=== PATIENT | female | born 1940 | race African-American/Black ===

== ENCOUNTER 2017-01-06 17:20 | Inpatient (IN) | payer OTHER ==
[~2017-01-06] VITALS: Ht 154.9 cm; Wt 79.4 kg
--- NOTE | ~2017-01-06 | 2DMMODE ---
[facility] [address] [place] [address] 2 D/M-MODE ECHOCARDIOGRAM Name: CIRILO HAWK ANDREW Room #: 206-P ADM IN .R.#: [id number] Admission: 01/06/17 Attend Phys: Douglas Hackett MD Discharge: Date of : 44 Date of Service: 01/07/17 1115 Report #: [id number] THIS REPORT FOR: //name// APPROVED REPORT Study performed: 01/07/2017 09:27:44 EXAM: Comprehensive 2D, Doppler, and color-flow Echocardiogram Patient Location: Bedside Room #: 206 Status: routine Other Information Study Quality: Good Indications Chest Pain Hx HTN, HLP 2D Dimensions RVDd: 33.49 mm LVEF(%): 74.27 (>50%) IVSd: 11.17 (7-11mm) LVOT Diam: 19.60 (18-24mm) LVDd: 41.88 mm PWd: 9.42 (7-11mm) Ascending Ao: 36.27 (22-36mm) LVDs: 23.97 (25-40mm) Aortic Root: 29.47 mm IVC: 1.80 mm Nick's LVEF: 74.27 % Volumes Left Atrial Volume (Systole) Single Plane 4CH: 32.76 mL Aortic Valve AoV Peak Jose.: 1.60 m/s AO Peak Gr.: 10.27 mmHg LVOT Max P.78 mmHg LVOT Max V: 1.09 m/s MARY Vmax: 2.06 cm2 Mitral Valve E/A Ratio: 0.8 MV Decel. Time: 236.42 ms MV E Max Jose.: 0.89 m/s MV A Jose.: 1.05 m/s MV PHT: 68.56 ms IVRT: 69.20 ms [facility] [place] [address] 2 D/M-MODE ECHOCARDIOGRAM Name: HAWKCIRILO [place] Room #: 206-P [facility] IN M.R.#: [id number] Admission: 01/06/17 Attend Phys: Douglas Hackett MD Discharge: Date of : 44 Date of Service: 01/07/17 1115 Report #: [id number] Pulmonary Valve PV Peak Jose.: 0.92 m/s PV Peak Gr.: 3.40 mmHg Pulmonary Vein P Vein S: 0.45 m/s P Vein A: 0.31 m/s P Vein D: 0.32 m/s P Vein A Dur.: 120.0 msec P Vein S/D Ratio: 1.41 Tricuspid Valve TR Peak Jose.: 2.50 m/s RAP Estimate: 5.00 mmHg TR Peak Gr.: 25.03 mmHg PA Pressure: 30.00 mmHg Left Ventricle The left ventricle is normal size. There is normal LV segmental wall motion. There is normal left ventricular wall thickness. The left ventricular systolic function is normal. The left ventricular ejection fraction is within the normal range. LVEF is 60%. Grade I - abnormal relaxation pattern. Right Ventricle The right ventricle is normal size. The right ventricular systolic function is normal. Atria The left atrium size is normal. The right atrium size is normal. Aortic Valve Aortic valve is calcified. No aortic regurgitation is present. There is no aortic valvular stenosis. Mitral Valve Mitral valve leaflets are thickened. There is no mitral valve regurgitation noted. No evidence of mitral valve stenosis. Tricuspid Valve The tricuspid valve is normal in structure. There is trace tricuspid regurgitation. The right atrial pressure is estimated at 5 mmHg. There is mild pulmonary hypertension with an estimated PAP 30 mmHg. Pulmonic Valve The pulmonary valve is normal in structure. There is no pulmonic valvular regurgitation. [facility] [address] [place] [address] 2 D/M-MODE ECHOCARDIOGRAM Name: CIRILO HAWK Room #: 206-P ADM IN .R.#: [id number] Admission: 01/06/17 Attend Phys: Douglas Hackett MD Discharge: Date of : 44 Date of Service: 01/07/17 1115 Report #: [id number] Great Vessels The aortic root is normal in size. IVC is normal in size and collapses >50% with inspiration. Pericardium There is no pericardial effusion. <Conclusion> The left ventricle is normal size. LVEF is 60%. The left atrium size is normal. Aortic valve is calcified. No aortic regurgitation is present. There is no aortic valvular stenosis. Mitral valve leaflets are thickened. There is no mitral valve regurgitation noted. The tricuspid valve is normal in structure. There is trace tricuspid regurgitation. The right atrial pressure is estimated at 5 mmHg. There is mild pulmonary hypertension with an estimated PAP 30 mmHg. <ELECTRONICALLY SIGNED> By: Flako Perez MD 01/07/17 1115 1115 1115 Flako Perez MD /INF
--- NOTE | ~2017-01-06 | EKG ---
[address] [place] [address] ELECTROCARDIOGRAM REPORT Name: CIRILO HAWK Room #: 206-P ADM IN M.R.#: [id number] Admission: 01/06/17 Attend Phys: Douglas Hackett MD Discharge: Date of : 44 Report #: [id number] THIS REPORT FOR: //name// [facility] ED Test Date: 2017-01-06 Test Time: 17:31:06 Pat Name: CIRILO HAWK Department: Room: 206 Gender: F Med Admin: KEITH : 1940 Requested By: Fauzia Fernandes Order Number: [id number] MD: Dixon Morris Measurements Intervals [place] Rate: 96 P: 47 WY: 154 QRS: -20 QRSD: 76 T: 46 QT: 328 QTc: 415 Interpretive Statements Sinus rhythm Borderline left axis deviation Low voltage, precordial leads ST elevation suggests acute pericarditis Compared to ECG 12/12/2014 08:57:25 ST (T wave) deviation now present Electronically Signed On 01-07-2017 8:54:43 CDT by Dixon Morris [email or web address] <ELECTRONICALLY SIGNED> By: Dixon Morris MD, [facility] 01/07/17 0854 1731 1731 Dixon Morris MD, [facility] /EPI
--- NOTE | ~2017-01-06 | EKG ---
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: 1940 Requested By: Dixon Morris Order Number: [id number] MD: Dixon Morris Measurements Intervals [place] Rate: 89 P: 55 OR: 167 QRS: -17 QRSD: 77 T: 34 QT: 360 QTc: 439 Interpretive Statements Sinus rhythm Borderline left axis deviation Low voltage, precordial leads Borderline T wave abnormalities Compared to ECG 01/06/2017 17:31:06 Minimal, diffuse ST elevation is no longer present Electronically Signed On 01-08-2017 18:26:18 CDT by Dixon Morris [email or web address] <ELECTRONICALLY SIGNED> By: Dixon Morris MD, [facility] 01/08/17 1826 0619 Dixon Morris MD, [facility] /EPI
--- NOTE | ~2017-01-06 | HC ---
[facility] [place] [address] CONSULTATION Name: CIRILO HAWK Room #: 206-P [facility] IN M.R.#: [id number] Admission: 01/06/17 Attend Phys: Douglas Hackett MD Discharge: Date of : 44 Report #: [id number] THIS REPORT FOR: //name// CC: Deisi Hackett REASON FOR CONSULTATION: Chest pain. HISTORY OF PRESENT ILLNESS: The patient is a 76-year-old woman with rheumatoid arthritis. She presents with 2- to 3-day history of sharp epigastric and left-sided chest pain, occasionally radiating to her shoulder. The pain would come and go; in general it lasts in 15-minute increments. There was a positional component to the pain and she had trouble lying on her left side as the pain was clearly worse. She took a Zantac with may be some improvement, although the pain recurred. She denies fevers, chills, night sweats, rash or any specific joint flares for her rheumatoid arthritis. Presenting EKG demonstrated minimal diffuse ST elevation and AZ depression and multiple leads with subtle AZ elevation in aVR. She denies heart failure symptoms including orthopnea, paroxysmal nocturnal dyspnea or lower extremity edema. No history of near syncope or syncope. MEDICATIONS: Include iron, amlodipine 5 mg daily, Estrace, Plaquenil 200 mg twice daily, prednisone 2 mg twice daily and atorvastatin 40 mg daily. ALLERGIES: She is allergic to CODEINE AND SULFA. PAST MEDICAL HISTORY: Medical records have been reviewed and include a history of rheumatoid arthritis, cholecystectomy, total abdominal hysterectomy, bilateral knee replacements, restless legs syndrome, hypertension and dyslipidemia. SOCIAL HISTORY: She is . 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 FAMILY HISTORY: Notable for father who at 51 of myocardial infarction. REVIEW OF SYSTEMS: All systems negative except as that noted above. PHYSICAL EXAMINATION: GENERAL: A pleasant woman in no distress. VITAL SIGNS: Blood pressure is 98/60, heart rate of 90 and regular. She is afebrile, 5 feet 1 inches tall and 175 pounds. HEENT: There are neither xanthelasma, subcutaneous xanthomata, oral mucosal or digital cyanosis or kyphoscoliosis present. CHEST: Clear to auscultation and percussion. CARDIOVASCULAR: Regular rate and rhythm with normal S1, S2. I do not hear a rub. ABDOMEN: Soft and nontender. [facility] [address] [place] [address] CONSULTATION Name: CIRILO HAWK Room #: 206-P [facility] IN ..#: [id number] Admission: 01/06/17 Attend Phys: Douglas Hackett MD Discharge: Date of : 44 Report #: [id number] EXTREMITIES: Without cyanosis, clubbing or edema. Radial pulses are 2+. NEUROLOGIC: She is alert with a nonfocal exam. LABORATORY DATA: Sodium is 139, potassium 4.2, creatinine 1.8, which is around her baseline. Troponin is 0.17 and 0.18, CRP of 176. White count 10.9, hemoglobin 14, hematocrit 42, platelet count 187 and sed rate of 29. Chest x-ray demonstrates a small left pleural effusion, mid left lower lobe infiltrate or atelectasis. IMPRESSION: 1. Probable myocarditis/pericarditis. 2. Rheumatoid arthritis. 3. Hypertension. 4. Chronic kidney disease. 5. Dyslipidemia. RECOMMENDATIONS: 1. A trial of anti-inflammatory medications, tapering dose; 3-month course of colchicine. 2. Echocardiogram with Doppler. 3. Rheumatologic evaluation, I suspect this episode is likely related to her underlying inflammatory arthritis. Further thoughts will be forthcoming based on this evaluation. Thank you for asking me to participate in her care. By: 0734 0908 Dixon Morris MD, FACC /nt
--- NOTE | ~2017-01-06 | EKG ---
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 : 1940 Requested By: Zandra Johnson Order Number: [id number] MD: Dixon Morris Measurements Intervals [place] Rate: 82 P: 51 MS: 166 QRS: -14 QRSD: 75 T: 42 QT: 374 QTc: 437 Interpretive Statements Sinus rhythm Low voltage, precordial leads ST elevation, consider pericarditis Compared to ECG 12/12/2014 08:57:25 No significant change was found Electronically Signed On 01-08-2017 18:12:09 CDT by Dixon Morris [email or web address] <ELECTRONICALLY SIGNED> By: Dixon Morris MD, [facility] 01/08/17 1812 0540 0540 Dixon Morris MD, [facility] /EPI
[~2017-01-06 17:20] MED LIST: ALDACTONE25 MG PO; ATORVASTATIN CA40 MG PO; CALCIUM 600 +1 EAC1 PO; COLACE100 MG PO; CYTOTEC200 MCG PO; DICLOFENAC SODI75 M1 PO; DYAZIDE 37.5-21 EACH PO; ESTRACE1 MG PO; FISH OIL 1,0001 EAC5 PO; FISH OIL 1,001000 M2 PO; GLUCOSAMINE &1 EAC1 PO; HCTZ; HYDROCODONE-AP1 EAC6 PO; HYDROXYCHLOROQ200 M1 PO; IBUPROFEN 600600 M1 PO; IRON325 PO; MIRALAX17 GM PO; NEXIUM40 MG PO; NORCO 5-325 TA1 EACH PO; NORFLEX100 MG PO; NORVASC 5 MG TAB5 MG PO; PENNSAID150 ML TRANSDERM; PREDNISOLONE 5 M5 M1 PO; PREDNISONE 1 MG1 M1 PO; RED YEAST RICE600 MG PO; REQUIP0.5 MG PO; TRAMADOL 50 MG50 MG PO; TYLENOL325 MG PO; XARELTO10 MG PO; ZANAFLEX4 MG PO
[2017-01-06 17:31] VITALS: BP 92/56
[2017-01-06 18:14] LABS: HEMATOCRIT 42.2 % (37.0-47.0); HEMOGLOBIN 14.2 gm/dL (12.0-15.0); MCH 30.9 pg (26.0-34.0); MCHC 33.6 g/dL (28.0-37.0); MCV 92.1 fL (80.0-100.0); PLATELET COUNT 187 thou/uL (150-400); RBC 4.58 mil/uL (4.20-5.00); WBC 10.9 thou/uL (4.0-11.0)
[2017-01-06 18:17] LABS: MANUAL DIFF YES
[2017-01-06 18:28] LABS: INR 1.7; PROTIME 17.7 Seconds (9.3-11.4)
[2017-01-06 18:29] LABS: ANION GAP 12 mmol/L (7-16); BUN 29 mg/dL (7-18); CHLORIDE 101 mmol/L (98-107); CO2 24 mmol/L (21-32); CREATININE 2.1 mg/dL (0.6-1.0); GLUCOSE 92 mg/dL (74-106); POTASSIUM 4.2 mmol/L (3.5-5.1); SODIUM 137 mmol/L (136-145)
[2017-01-06 18:39] LABS: ABSOLUTE NEUTROPHILS 8.3 thou/uL (1.4-8.2); TOTAL CELL COUNT 100
[2017-01-06 18:40] LABS: ALBUMIN 3.5 g/dL (3.4-5.0); ALKALINE PHOSPHATASE 65 U/L (46-116); SGOT 24 U/L (15-37); SGPT 18 U/L (30-65); TOTAL BILIRUBIN 0.6 mg/dL (<0.1-1.0); TROPONIN-I < 0.04 ng/mL (<0.04-0.07)
[2017-01-06 19:47] VITALS: BP 84/52
[2017-01-06 20:20] VITALS: BP 91/56
[2017-01-06] MEDS ORDERED: PREDNISONE 5 MG5 M1 PO (20:25)
[2017-01-06 23:57] LABS: CHOLESTEROL 128 mg/dL (<200); HDL CHOLESTEROL 75 mg/dL (>40); LDL CHOLESTEROL 43 mg/dL (<100); TC:HDL 1.7 Ratio (Not establshd); TRIGLYCERIDE 50 mg/dL (<150); TROPONIN-I 0.17 ng/mL (<0.04-0.07); VLDL 10 mg/dL (<40)
[2017-01-07 00:24] VITALS: BP 90/59
[2017-01-07 04:17] VITALS: BP 98/60
[2017-01-07 06:09] LABS: CALCIUM 7.8 mg/dL (8.5-10.1); CREATININE 1.8 mg/dL (0.6-1.0); POTASSIUM 4.2 mmol/L (3.5-5.1); TROPONIN-I 0.18 ng/mL (<0.04-0.07)
[2017-01-07 07:30] VITALS: BP 94/59
[2017-01-07 11:28] VITALS: BP 96/61
[2017-01-07 16:23] VITALS: BP 99/53
[2017-01-07 20:15] VITALS: BP 97/60
[2017-01-08 03:02] LABS: HEMATOCRIT 35.9 % (37.0-47.0); MCH 30.5 pg (26.0-34.0); MCHC 33.7 g/dL (28.0-37.0); MCV 90.7 fL (80.0-100.0); RBC 3.96 mil/uL (4.20-5.00); WBC 8.2 thou/uL (4.0-11.0)
[2017-01-08 03:13] LABS: HEMOGLOBIN 12.1 gm/dL (12.0-15.0)
[2017-01-08 03:20] LABS: CALCIUM 7.7 mg/dL (8.5-10.1); CREATININE 1.5 mg/dL (0.6-1.0); POTASSIUM 3.9 mmol/L (3.5-5.1)
[2017-01-08 03:52] VITALS: BP 94/53
[2017-01-08 05:11] LABS: GLYCOHEMOGLOBIN (HGB A1C) 5.3 % (4.8-5.6)
[2017-01-08 09:47] VITALS: BP 94/53
[2017-01-08 10:24] VITALS: BP 94/53
[2017-01-08] MEDS ORDERED: ASPIRIN325 PO (11:45)
[2017-01-08] MEDS ORDERED: PROTONIX40 M1 PO (11:46)
[2017-01-08] MEDS ORDERED: COLCHICINE0.6 MG PO (11:46)
== END 2017-01-08 12:30 | disposition home or self-care (01) | DRG 314 ==
LOC: ER 17:20 → 2N 19:07 → EROBS 19:07 → 2N 19:48
PROVIDERS: Hospitalist; Internal Medicine; Nurse Practitioner Acute Care; Physician Assistant
DX: I30.9 Acute pericarditis, unspecified (principal); I40.9 Acute myocarditis, unspecified; N17.9 Acute kidney failure, unspecified; I12.9 Hypertensive chronic kidney disease with stage 1 through stage 4 chronic kidney disease, or unspecified chronic kidney disease; E78.00 Pure hypercholesterolemia, unspecified; M06.9 Rheumatoid arthritis, unspecified; K21.9 Gastro-esophageal reflux disease without esophagitis; G25.81 Restless legs syndrome; E78.5 Hyperlipidemia, unspecified; N18.3 Chronic kidney disease, stage 3 (moderate); Z96.653 Presence of artificial knee joint, bilateral; Z79.899 Other long term (current) drug therapy; Z90.710 Acquired absence of both cervix and uterus; Z90.49 Acquired absence of other specified parts of digestive tract; Z82.49 Family history of ischemic heart disease and other diseases of the circulatory system; Z88.6 Allergy status to analgesic agent; Z88.2 Allergy status to sulfonamides; Z79.52 Long term (current) use of systemic steroids
CPT/HCPCS: 10081

== ENCOUNTER → 2017-02-12 | Outpatient (CLI) | payer OTHER ==
[~2017-02-12] VITALS: Ht 157.5 cm; Wt 77.1 kg
[~2017-02-12] MED LIST changes: +ASPIRIN325 PO; +COLCHICINE0.6 MG PO; +FLUTICASONE PRO16 GM NASAL; +PREDNISONE 5 MG5 M1 PO; +PROTONIX40 M1 PO
--- NOTE | ~2017-02-12 | S ---
[facility] [place] [address] SURGICAL PATH RPT PROCEDURE Name: HAWKGERBER Room #: REG CLI Vaughn.#: [id number] Admission: 02/12/17 Date of : 44 Discharge: Report #: [id number] Path Case #: [id number] PATHOLOGY REPORT COLLECTION DATE: 02/12/2017 RECEIVED DATE: 02/12/2017 SUBMITTING PHYS: Dr. Rj Hoyos OTHER PHYS: Dr Deisi Nichole SPECIMEN(S) RECEIVED: A.Gastric bx * * * * * * * * * * * * FINAL DIAGNOSIS: Gastric mucosa, rule out gastritis, endoscopic biopsy: - Moderate reactive gastropathy. - Negative for intestinal metaplasia or atrophy. - Negative for Helicobacter pylori. COMMENT: Helicobacter pylori immunohistochemical stain performed on block A1-negative (IUV:mgr; 02/13/2017) PATHOLOGIST: Alaina Bowser M.D. REPORT ELECTRONICALLY SIGNED BY: Alaina Bowser M.D. DATE/TIME: 02/13/2017 12:35 * * * * * * * * * * * * GROSS PATHOLOGY: Received in formalin labeled "Gerber Hawk gastric BX," and additionally labeled on the requisition as "r/o gastritis," are 3 segments of lopez soft tissue measuring 0.8 x 0.2 x 0.3 cm in aggregate dimensions and ranging from 0.2 to 0.3 cm in maximum dimension. The specimen is submitted entirely in cassette A1. (TSD; 02/12/2017) CLINICAL HISTORY: Pre-OP DX: Abdominal pain Post-OP DX: Dysphagia, gastritis INITIAL CPT CODE(S): A; 00176, 65638 Professional services performed by [email or web address] at [facility] [address] [place] [address] SURGICAL PATH RPT PROCEDURE Name: GEREBR HAWK Room #: REG ANAT Ji#: [id number] Admission: 02/12/17 Date of : 44 Discharge: Report #: [id number] Path Case #: [id number] [address] [facility] , [place] [address] Technical services performed by [email or web address] at [address] [place] [address], [facility] [address] [address]. [facility] [address] [place] [address] PHONE: [phone] DIRECTOR: Jaquan Martinez M.D. * * * END OF REPORT * * *
--- NOTE | ~2017-02-12 | P ---
[facility] [place] [address] PROCEDURE REPORT Name: CIRILO HAWK [id number] Admission: 02/12/17 Attend Phys: Rj Jaffe Discharge: Date of : 44 Report #: [id number] THIS REPORT FOR: //name// CC: Rj Nichole MD DATE OF SERVICE: 02/12/2017 PROCEDURE PERFORMED: Upper endoscopy with biopsies and esophageal dilation. HISTORY OF PRESENT ILLNESS: The patient is a 76-year-old female with intermittent chest pain, mid epigastric abdominal pain and dysphagia. Plan is for upper endoscopy. PROCEDURE: The risks and benefits of the procedure were explained to the patient, those risks including, but not limited to bleeding, perforation, and the risk of sedation. She understood these risks and gave informed consent. Sedation was given using propofol per anesthesia. Next, using a standard [employer] upper endoscope, the scope was placed in the patient's mouth and advanced under direct vision through the esophagus, stomach and into the second portion of the duodenum. The upper esophagus was normal. The mid and distal esophagus was somewhat tortuous, there was at the GE junction a very faint Schatzki's ring. The scope was able to pass without difficulty. Upon entering the stomach, a medium-sized hiatal hernia was noted. Overall, the gastric mucosa was normal in the fundus and body. There was gastritis with several erosions; however, in the antrum. Biopsies were obtained to rule out H. pylori. The pylorus was normal and patent. The duodenal bulb, first and second portion were all normal. The scope was then brought back up into the patient's stomach and a Savary guidewire was inserted through the scope, leaving the guidewire in place as the scope was then withdrawn. Next, a 48-Albanian Savary dilation of the esophagus was then performed without difficulty. The wire and dilator were removed. The scope was reintroduced into the patient's stomach. There was no evidence of mucosal tear after dilation. Scope was then withdrawn and the procedure terminated. The patient tolerated the procedure well. IMPRESSION: 1. Mild Schatzki's ring. 2. Hiatal hernia. 3. Gastritis with erosions. RECOMMENDATIONS: 1. Await biopsy results. 2. Observe the patient post dilation. 3. We would recommend daily PPI therapy. [address] [address] PROCEDURE REPORT Name: CIRILO HAWK Room #: REG CLI Margy#: [id number] Admission: 02/12/17 Attend Phys: Rj Jaffe Discharge: Date of : 44 Report #: [id number] Thank you for allowing me to participate in her care. <ELECTRONICALLY SIGNED> By: Rj Hoyos MD 02/14/17 0812 1122 1240 Rj Hoyos MD /beverley
== END | disposition home or self-care (01) ==
LOC: GI 08:42
DX: K31.9 Disease of stomach and duodenum, unspecified (principal); K22.2 Esophageal obstruction; K44.9 Diaphragmatic hernia without obstruction or gangrene; I12.9 Hypertensive chronic kidney disease with stage 1 through stage 4 chronic kidney disease, or unspecified chronic kidney disease; N18.3 Chronic kidney disease, stage 3 (moderate); E78.00 Pure hypercholesterolemia, unspecified; M06.9 Rheumatoid arthritis, unspecified; K21.9 Gastro-esophageal reflux disease without esophagitis; Z90.710 Acquired absence of both cervix and uterus; Z96.653 Presence of artificial knee joint, bilateral; Z98.890 Other specified postprocedural states

== ENCOUNTER → 2017-05-06 | Outpatient (CLI) | payer OTHER | LOC: RAD 02:12 | DX: Z12.31 Encounter for screening mammogram for malignant neoplasm of breast (principal) ==

== ENCOUNTER → 2018-05-07 | Outpatient (CLI) | payer OTHER | LOC: RAD 01:21 | DX: Z12.31 Encounter for screening mammogram for malignant neoplasm of breast (principal) ==

== ENCOUNTER → 2019-05-10 | Outpatient (CLI) | payer OTHER | LOC: RAD 09:13 | DX: Z12.31 Encounter for screening mammogram for malignant neoplasm of breast (principal) ==

== ENCOUNTER → 2019-12-06 | Outpatient (CLI) | payer OTHER | LOC: RAD 11:09 | PROVIDERS: ATTEND Internal Medicine Rheumatology | DX: M47.816 Spondylosis without myelopathy or radiculopathy, lumbar region (principal); M48.061 Spinal stenosis, lumbar region without neurogenic claudication; M25.551 Pain in right hip; M25.552 Pain in left hip ==

== ENCOUNTER → 2020-04-11 | Outpatient (CLI) | payer OTHER | LOC: SJCVCIMAG 07:07 | PROVIDERS: ATTEND Internal Medicine | DX: I07.1 Rheumatic tricuspid insufficiency (principal); I11.9 Hypertensive heart disease without heart failure; R94.31 Abnormal electrocardiogram [ECG] [EKG]; I25.10 Atherosclerotic heart disease of native coronary artery without angina pectoris; E78.5 Hyperlipidemia, unspecified; Z79.899 Other long term (current) drug therapy ==

== ENCOUNTER → 2020-05-11 | Outpatient (CLI) | payer OTHER | LOC: BC 09:48 | PROVIDERS: ATTEND Internal Medicine | DX: Z12.31 Encounter for screening mammogram for malignant neoplasm of breast (principal) ==

== ENCOUNTER → 2021-04-16 | Outpatient (CLI) | payer OTHER | LOC: SJCVC 09:19 | PROVIDERS: ATTEND Internal Medicine | DX: R94.31 Abnormal electrocardiogram [ECG] [EKG] (principal); I25.10 Atherosclerotic heart disease of native coronary artery without angina pectoris; I10 Essential (primary) hypertension; E78.5 Hyperlipidemia, unspecified; I07.1 Rheumatic tricuspid insufficiency; D47.2 Monoclonal gammopathy; Z79.82 Long term (current) use of aspirin; Z79.899 Other long term (current) drug therapy; Z88.5 Allergy status to narcotic agent; Z88.2 Allergy status to sulfonamides; Z82.49 Family history of ischemic heart disease and other diseases of the circulatory system ==

== ENCOUNTER → 2021-05-15 | Outpatient (CLI) | payer OTHER | LOC: BC 10:59 | PROVIDERS: ATTEND Obstetrics & Gynecology | DX: Z12.31 Encounter for screening mammogram for malignant neoplasm of breast (principal); N64.89 Other specified disorders of breast ==